=== PATIENT | female | born 2000 | race African-American/Black ===

== ENCOUNTER 2020-06-18 22:25 | Emergency (ER) | payer OTHER ==
[~2020-06-18] VITALS: Ht 160 cm; Wt 69.5 kg
[2020-06-18 22:26] VITALS: BP 122/74
[2020-06-18] MEDS ORDERED: CYCL-707 PO (22:39)
== END 2020-06-19 00:30 | disposition home or self-care (01) ==
LOC: M ED 22:25
DX: R11.2 Nausea with vomiting, unspecified (principal)

== ENCOUNTER 2020-10-06 21:33 | Emergency (ER) | payer OTHER ==
[~2020-10-06] VITALS: Ht 160 cm; Wt 67.5 kg
[2020-10-06 21:33] VITALS: BP 127/78
[~2020-10-06 21:33] MED LIST: CYCL-707 PO
[2020-10-06] MEDS ORDERED: ERGO500029 PO (21:38)
[2020-10-07 03:34] LABS: URINE PREG TEST NEGATIVE (NEGATIVE)
== END 2020-10-07 04:02 | disposition left against medical advice (07) ==
LOC: M ED 21:33
DX: Z53.21 Procedure and treatment not carried out due to patient leaving prior to being seen by health care provider (principal)

== ENCOUNTER 2020-11-28 10:18 | Emergency (ER) | payer OTHER ==
[~2020-11-28] VITALS: Ht 160 cm; Wt 66.8 kg
[~2020-11-28 10:18] MED LIST changes: +ERGO500029 PO
[2020-11-28 11:55] LABS: BASO % 0.7 % (0.0-1.0); EOS # 0.1 10^3/uL (0.0-0.5); EOS % 0.9 % (0.0-3.0); HEMATOCRIT 40.2 % (36.0-47.0); HEMOGLOBIN 13.1 g/dl (12.0-15.5); LYMPH # 1.9 10^3/uL (1.5-5.0); LYMPH % 32.8 % (24.0-44.0); MEAN CORPUSCULAR HEMOGLOBIN 30.3 pg (27.0-33.0); MEAN CORPUSCULAR HGB CONC 32.6 g/dl (32.0-36.5); MEAN CORPUSCULAR VOLUME 93.1 fl (80.0-96.0); MONO # 0.4 10^3/uL (0.0-0.8); MONO % 6.3 % (2.0-8.0); NEUTROPHILS # 3.4 10^3/uL (1.5-8.5); NEUTROPHILS % 59.1 % (36.0-66.0); PLATELET COUNT, AUTOMATED 237 10^3/uL (150-450); RED BLOOD COUNT 4.32 10^6/uL (4.00-5.40); WHITE BLOOD COUNT 5.7 10^3/uL (4.0-10.0)
[2020-11-28] MEDS ORDERED: ISOVUE-370 76% 100ML VIAL As Ordered ONE (12:23)
[2020-11-28 12:37] LABS: ERYTHROCYTE SEDIMENTATION RATE 5 mm/hr (0-20)
--- NOTE | 2020-11-28 13:09 | REPVR ---
PROCEDURE INFORMATION: Exam: CT Lumbar Spine With Contrast Exam date and time: 11/28/2020 12:32 PM Age: 20 years old Clinical indication: Mass or lump in lumbosacral region; Additional info: With contrast soft tissue swelling lumbar spine midline TECHNIQUE: Imaging protocol: Computed tomography images of the lumbar spine with intravenous contrast. Radiation optimization: All CT scans at this facility use at least one of these dose optimization techniques: automated exposure control; mA and/or kV adjustment per patient size (includes targeted exams where dose is matched to clinical indication); or iterative reconstruction. Contrast material: ISOVUE 370; Contrast volume: 100 ml; Contrast route: INTRAVENOUS (IV); COMPARISON: No relevant prior studies available. FINDINGS: Vertebrae: No acute fracture. Normal alignment. Discs/Spinal canal/Neural foramina: L1-L2 and L2-L3 are unremarkable without significant disc bulge, spinal stenosis, or neural foraminal narrowing. L3-L4 shows mild disc bulge without stenosis or neural foraminal narrowing. L4-L5 shows disc bulge with minimal superimposed central protrusion without spinal stenosis or neural foraminal narrowing. L5-S1 shows mild central disc bulge without stenosis or neural foraminal narrowing. Kidneys and ureters: Symmetric normal nephrograms. No evidence of pyelonephritis. No hydronephrosis. No visible stones. Vasculature: Aorta is normal in caliber. No aneurysm. Soft tissues: There is mild superficial edema within the fat of posterior back. This is a not uncommon finding in patients of larger body habitus and not typically of clinical significance. There is no marginated or rim enhancing fluid collection to suggest a drainable fluid collection or abscess. IMPRESSION: Minimal edema in posterior back within the superficial fat. No drainable fluid collection or evidence of abscess. Electronically signed by: Solange Alexandra On 11/28/2020 13:09:29 PM
[2020-11-28] MEDS ORDERED: KETOROLAC 30 MG/ML 1ML VIAL IV ONE (13:15)
[2020-11-28] MEDS ORDERED: NAPR-837 PO (14:25)
[2020-11-28 14:40] VITALS: BP 118/71
== END 2020-11-28 14:42 | disposition home or self-care (01) ==
LOC: M ED 10:18
DX: M51.26 Other intervertebral disc displacement, lumbar region (principal); M51.27 Other intervertebral disc displacement, lumbosacral region; Z79.899 Other long term (current) drug therapy
CPT/HCPCS: 72132; 84702; 85025; 85652; 86140; 96374; 99284; J1885; Q9967